=== PATIENT | female | born 1945 | race American Indian/Alaskan Native ===

== ENCOUNTER 2021-10-19 12:14 | Emergency (ER) | payer MEDICARE ==
[2021-10-19 13:01] VITALS: BP 163/75
--- NOTE | 2021-10-19 13:45 | XRay Report ---
LEFT WRIST 3 VIEWS INDICATION / CLINICAL INFORMATION: pain sp fall COMPARISON: None available. FINDINGS: BONES / JOINT(S): There is a minimally displaced intra-articular distal radius fracture apparently in volving the radial styloid with mild cortical step-off at the distal articular surface. No additional fractures are identified. There is mild osteoarthrosis. SOFT TISSUES: Mild soft tissue swelling is noted greatest along the radial side. ADDITIONAL FINDINGS: None. IMPRESSION: Minimally displaced intra-articular distal radius fracture primarily involving the radial styloid. Signer Name: Manish Pacheco MD Signed: 10/19/2021 1:40 PM Workstation Name: [id number]
--- NOTE | 2021-10-19 13:53 | Emergency Department Report ---
ED Upper Extremity Inj HPI - General Chief Complaint: Extremity Injury, Upper Stated Complaint: LEFT ARM PAIN/GROUND LEVEL/1 WEEK Time Seen by Provider: 10/19/21 13:42 Source: patient Mode of arrival: Ambulatory Limitations: No Limitations - Related Data Home Medications Medication Instructions Recorded Confirmed Last Taken Escitalopram Oxalate 1 tab PO DAILY 09/18/14 09/20/14 09/18/14 Gabapentin 1 cap PO PRN PRN 09/18/14 09/20/14 09/18/14 Lisinopril/Hydrochlorothiazide 1 tab PO DAILY 09/18/14 09/20/14 09/20/14 [Lisinopril-Hctz 10-12.5 mg Tab] Tramadol HCl 1 tab PO PRN PRN 09/18/14 09/20/14 09/19/14 Previous Rx's Medication Instructions Recorded Last Taken Type Meclizine [Antivert] 25 mg PO TID PRN #30 tablet 03/23/16 Unknown Rx Allergies Allergy/AdvReac Type Severity Reaction Status Date / Time aspirin Allergy BURNING IN Verified 09/18/14 12:16 STOMACH Penicillins Allergy Hives Verified 09/18/14 12:16 ED Review of Systems ROS: Stated complaint: LEFT ARM PAIN/GROUND LEVEL/1 WEEK Other details as noted in HPI ED Past Medical Hx - Past Medical History Hx Hypertension: Yes Hx Asthma: No Hx HIV: No - Surgical History Additional Surgical History: HYSTERECTOMY, RIGHT EAR DRUM RUPTURE, , BILATERAL CARPAL TUNNEL REPAIR, - Social History Smoking Status: Never Smoker - Medications Home Medications: Home Medications Medication Instructions Recorded Confirmed Last Taken Type Escitalopram Oxalate 1 tab PO DAILY 09/18/14 09/20/14 09/18/14 History Gabapentin 1 cap PO PRN PRN 09/18/14 09/20/14 09/18/14 History Lisinopril/Hydrochlorothiazide 1 tab PO DAILY 09/18/14 09/20/14 09/20/14 History [Lisinopril-Hctz 10-12.5 mg Tab] Tramadol HCl 1 tab PO PRN PRN 09/18/14 09/20/14 09/19/14 History Meclizine [Antivert] 25 mg PO TID PRN #30 tablet 03/23/16 Unknown Rx ED Physical Exam - General Limitations: No Limitations ED Course Vital Signs 10/19/21 12:59 Temperature 98.9 F Pulse Rate 57 L Respiratory 17 Rate Blood Pressure 163/75 O2 Sat by Pulse 98 Oximetry Critical care attestation.: If time is entered above; I have spent that time in minutes in the direct care of this critically ill patient, excluding procedure time. ED Disposition Clinical Impression: Radius fracture Qualifiers: Encounter type: initial encounter Fracture type: closed Laterality: left Disposition: HOME / SELF CARE / HOMELESS Is pt being admited?: No Does the pt Need Aspirin: No Condition: Stable Instructions: Radial Fracture Additional Instructions: rest ice elevate motrin or tylenol for pain follow up with Dr Paulino in 48 hours for recheck referral below Referrals: DANNIELLE PAULINO MD [Staff Physician] - 3-5 Days Time of Disposition: 13:57
== END 2021-10-19 14:45 | disposition home or self-care (01) ==
LOC: ED 12:14
DX: S52.92XA Unspecified fracture of left forearm, initial encounter for closed fracture (principal); M79.602 Pain in left arm; I10 Essential (primary) hypertension; Z88.0 Allergy status to penicillin; X58.XXXA Exposure to other specified factors, initial encounter; Y93.89 Activity, other specified; Y92.89 Other specified places as the place of occurrence of the external cause; Y99.8 Other external cause status
CPT/HCPCS: 99283